=== PATIENT | male | born 1990 | race Caucasian/White ===

== ENCOUNTER 2020-04-02 18:51 | Emergency (ER) | payer OTHER ==
[2020-04-02] MEDS ORDERED: Sodium Chloride Irrig Solution 250 ML ONE (19:14)
[2020-04-02] MEDS ORDERED: Lidocaine 2% 20 ml MDV ONE (19:15)
== END 2020-04-02 20:22 | disposition home or self-care (01) ==
LOC: MADLAB 18:51 → MADERS 18:51
DX: S61.411A Laceration without foreign body of right hand, initial encounter (principal); F90.9 Attention-deficit hyperactivity disorder, unspecified type; I10 Essential (primary) hypertension; F17.210 Nicotine dependence, cigarettes, uncomplicated; Z79.899 Other long term (current) drug therapy; W29.3XXA Contact with powered garden and outdoor hand tools and machinery, initial encounter
CPT/HCPCS: 12001